=== PATIENT | male | born 1940 | race Asian ===

== ENCOUNTER 2018-07-26 05:36 | Day surgery (SDC) | payer OTHER ==
--- NOTE | 2018-07-25 13:18 | PREOPHP ---
DATE OF ADMISSION: 07/26/2018 HISTORY OF PRESENT ILLNESS: This 78-year-old patient is admitted for elective cataract surgery of th e right eye. The patient has had decreased vision for a number of years and was advised while still living in the [facility] to undergo surgery. The patient did undergo laser trabeculoplasty in both eyes in 2016. The patient's systemic history is positive for systemic hypertension, hypercholesterol emia and glaucoma. CURRENT MEDICATIONS: Includes: 1. Latanoprost sustained in both eyes. 2. Atorvastatin. 3. Lisinopril. 4. Clopidogrel. ALLERGIES: THE PATIENT IS ALLERGIC TO TIMOLOL EYEDROPS. PHYSICAL EXAMINATION: The visual acuity with best correction is 20/80 in the right eye and 20/50 in the left eye. Slit lamp examination reveals moderate lens nuclear changes. There is a central poste rior subcapsular cataract greater in the right eye than the left eye. Applanation tonometry is 16 mm Hg. Examination of the retina is within normal limits. DIAGNOSIS: Posterior subcapsular cataract, right eye. PLAN: Cataract extraction with lens implant, right eye. The risks and alternatives to the surgery h ave been discussed with the patient and patient has opted to proceed with surgery in hopes of obtaini ng improved visual acuity leading to greater ability to perform activities of daily living. The ariana ent consents to proceed with surgery. Dictated By: KYLE SINGH/URMILA Conf#: [id number] DID#: [id number]
[~2018-07-26] VITALS: Ht 161.3 cm; Wt 73.2 kg
[2018-07-26] VITALS (9 sets, daily range): BP systolic 100–129; BP diastolic 54–65; PULSE 64–67; RESP 14–25; Ht 161.3 cm; Wt 73.2 kg
[2018-07-26] MEDS ORDERED: LIDOCAINE 4% (MPF) 5 ML INJ ONE (06:52)
[2018-07-26] MEDS ORDERED: CEFAZOLIN 1 GM INJ ONE (06:52)
[2018-07-26] MEDS ORDERED: GENTAMICIN 80 MG INJ ONE (06:53)
[2018-07-26] MEDS ORDERED: DEXAMETHASONE 4 MG/ML 1 ML INJ ONE (06:53)
[2018-07-26] MEDS ORDERED: TETRACAINE 0.5% 4 ML OPH ONE (06:53)
[2018-07-26] MEDS ORDERED: EPINEPHrine 1 MG INJ ONE (06:53)
[2018-07-26] MEDS ORDERED: CARBACHOL 0.01% 1.5 ML OPH INJ ONE (06:53)
[2018-07-26] MEDS ORDERED: LISI-471 PO (06:58)
[2018-07-26] MEDS ORDERED: FAMO20TA18 PO (06:58)
[2018-07-26] MEDS ORDERED: ATOR40TA68 PO (06:58)
[2018-07-26] MEDS ORDERED: CLOP75TA27 PO (06:59)
[2018-07-26] MEDS ORDERED: ASPI81TA52 PO (06:59)
[2018-07-26] MEDS ORDERED: OMEG1CAP2 PO (06:59)
[2018-07-26] MEDS ORDERED: DICLOFENAC 0.1% 2.5 ML OPH OPER SCH (07:00)
[2018-07-26] MEDS ORDERED: TROPICAMIDE 1% 15 ML OPH OPER SCH (07:00)
[2018-07-26] MEDS ORDERED: MOXIFLOXACIN 0.5% 3 ML OPH OPER SCH (07:00)
[2018-07-26] MEDS ORDERED: SOD CHLORIDE 0.9% 1,000 ML IV SCH (07:00)
[2018-07-26] MEDS ORDERED: CYCLOPENTOLATE/PHENYLEPH 2 ML OPH OPER SCH (07:00)
--- NOTE | 2018-07-26 07:11 | PREAC ---
Date/Time of Note Date/Time of Note DATE: 07/26/18 TIME: 07:06 Anesthesia Eval and Record Evaluation Time Pre-Procedure Interview DATE: 07/26/18 TIME: 07:06 Age 78 Sex male NPO: 8 hrs Preoperative diagnosis right cataract Planned procedure Right CE with OIL implant Past Medical History Past Medical History: Includes Cardio: HTN, Dyslipidemia, Other (first degree heart blockl) Pulm: Smoking Hx (quit ) Surgery & Anesthesia Issues No known issue Meds Anticoagulation: Yes (clopidrogel last taken yesterday; ASA stopped 6 days ago) Beta Peggy within 24 hr: No Reason Beta Peggy not given: Pt. not on B-Peggy Reported Medications Aspirin (Low Dose Aspirin) 81 Mg Tablet.dr, 81 MG PO DAILY, #30 TAB 07/26/18 [place]-3 Acid Ethyl Esters (Lovaza) 1 Gm Capsule, 1 GM PO DAILY, CAP 07/26/18 Clopidogrel Bisulfate (Clopidogrel) 75 Mg Tablet, 75 MG PO DAILY, #30 TAB 07/26/18 Famotidine* (Famotidine*) 20 Mg Tablet, 20 MG PO DAILY, #30 TAB 07/26/18 Lisinopril* (Lisinopril*) 20 Mg Tablet, 20 MG PO DAILY, #30 TAB 07/26/18 Atorvastatin* (Atorvastatin*) 40 Mg Tablet, 40 MG PO QHS, #30 TAB 07/26/18 Current Medications Diclofenac Sodium (Voltaren 0.1%) 1 drop Q5 MIN X 3 OPER Last administered on 07/26/18at 06:01; Admin Dose 1 DROP; Start 07/26/18 at 07:00; Stop 07/26/18 at 19:00 Tropicamide (Mydriacyl 1%) 1 drop Q5 MIN X3 OPER Last administered on 07/26/18at 06:01; Admin Dose 1 DROP; Start 07/26/18 at 07:00; Stop 07/26/18 at 19:00 Moxifloxacin HCl (Vigamox) 1 drop Q5 MIN X 3 OPER Last administered on 07/26/18at 06:00; Admin Dose 1 DROP; Start 07/26/18 at 07:00; Stop 07/26/18 at 19:00 Cyclopentolate/ Phenylephrine (Cyclomydril Oph 2 ml) 1 drop Q5 MIN X 3 OPER Last administered on 3/26/19at 06:01; Admin Dose 1 DROP; Start 07/26/18 at 07:00; Stop 07/26/18 at 19:00 Sodium Chloride 1,000 ml @ 25 mls/hr Q24H IV ; Start 07/26/18 at 07:00; Stop 07/26/18 at 19:00 Meds reviewed: Yes Allergies Coded Allergies: No Known Allergy (Unverified , 07/26/18) Allergies Reviewed: Yes Labs/Studies Labs Reviewed: Reviewed by anesthesiologist test: N/A Studies: ECG Pre-procedure Exam Last vitals Vital Signs Date Temp Pulse Resp B/P (MAP) Pulse Ox O2 O2 Flow FiO2 Time Delivery Rate 07/26/18 97.7 67 14 107/63 99 Room Air 06:19 (78) Airway: Adequate mouth opening, Adequate thyromental dist Mallampati: Mallampati II Teeth: Abnormal (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) Lung: Normal Heart: Normal ASA Physical Status ASA physical status: 3 Emergency: None Planned Anesthetic General/MAC: MAC Planned Pain Management Parenteral pain med Pre-operative Attestations Prior to commencing anesthesia and surgery, the patient was re-evaluated, there was verification of: *The patient's identity *The results of appropriate recent lab work and preoperative vital signs *The above evaluation not changing prior to induction *Anesthetic plan, risk benefits, alternative and complications discussed with patient/family; questions answered; patient/family understands, accepts and wishes to proceed. DOTTIE FAGAN CRNA Jul 26, 2018 07:11
[2018-07-26] MEDS ORDERED: FENTAnyl 50 MCG/ML VIAL ONE (07:23)
[2018-07-26] MEDS ORDERED: PROPOFOL 100 ML ONE (07:23)
[2018-07-26] MEDS ORDERED: LIDOCAINE 2% (SDV) 5 ML INJ ONE (07:25)
[2018-07-26] MEDS ORDERED: NA HYALURONATE/CHONDROITIN 0.5 ML SYG RIGHT EYE ONE (07:54)
--- NOTE | 2018-07-26 08:27 | PAC ---
Date/Time of Note Date/Time of Note DATE: 07/26/18 TIME: 08:26 Post-Anesthesia Notes Post-Anesthesia Note Last documented vital signs Vital Signs Date Temp Pulse Resp B/P (MAP) Pulse Ox O2 O2 Flow FiO2 Time Delivery Rate 07/26/18 97.7 67 14 107/63 99 Room Air 06:19 (78) Activity: WNL Respiratory function: WNL Cardiovascular function: WNL Mental status: Baseline Pain reasonably controlled: Yes Hydration appropriate: Yes Nausea/Vomiting absent: Yes Comments BP 129/57 SP02 99% HR 65 RR 17 T 98.9F DOTTIE FAGAN CRNA Jul 26, 2018 08:27
--- NOTE | 2018-07-26 08:28 | SIPON ---
Date/Time of Note Date/Time of Note DATE: 07/26/18 TIME: 08:27 Operative Report Preoperative Diagnosis nuclear sclerotic cataract od Postoperative Diagnosis same Operation/Procedure Performed cataract extraction with lens implant od Surgeon kyle christianson respiratory therapy assistant none Anesthesia: MAC Estimated blood loss: none Transfusion Required none Specimen none Grafts/Implants posterior chamber lens implant Complications none KYLE CHRISTIANSON MD Jul 26, 2018 08:28
[2018-07-26] MEDS ORDERED: ONDANSETRON 4 MG INJ IV PRN (08:30)
[2018-07-26] MEDS ORDERED: FENTAnyl 50 MCG/ML VIAL IV PRN (08:30)
[2018-07-26] MEDS ORDERED: OXYCODONE/ACETAMINOPHEN (5/325) TAB PO PRN (08:30)
--- NOTE | 2018-07-26 09:42 | OPR ---
DATE OF OPERATION: 07/26/2018 PREOPERATIVE DIAGNOSIS: Nuclear sclerotic cataract, right eye. POSTOPERATIVE DIAGNOSIS: Nuclear sclerotic cataract, right eye. OPERATION PERFORMED: Cataract extraction with lens implant, right eye. SURGEON: Kyle Ruiz M.D. ANESTHESIA: Monica Salazar CRNA. OPERATION: Phacoemulsification with posterior chamber intraocular lens implant, right eye. PROCEDURE: The patient was brought to the operating room and placed on the table with an IV in place and the patient attached to an monitor technician. Oxygen was given via face mask. After some intravenous sedation was administered, local anesthesia was given using Xylocaine 2% with epinephrine, mixed with Marcaine 0.5%. This was given in a lid block and retrobulbar injection. The patient was then prepped and draped in the usual sterile manner. A wire lid speculum was inserted between the lids of the right eye. A Superblade was used to enter the anterior chamber at the corneoscleral limbus at the 10:30 o'clock position. A separate incision was made using a 3.0-mm keratome which entered the corneoscleral junction at the 12 o'clock position. Through this 3-mm opening, an irrigating cystotome was introduced into the anterior chamber. The chamber was filled with Viscoat and an anterior capsulotomy was performed. Balanced salt solution was then used for hydrodissection of the lens. A phacoemulsification handpiece was then brought into the field and introduced into the anterior chamber. The lens nucleus was emulsified using a deep groove and cracking the nucleus into quadrants. Following this, each quadrant was aspirated and emulsified at the pupillary margin. After this was completed, the irrigation/aspiration handpiece was brought to the field, introduced into the posterior chamber, and the lens cortical material was removed. Following removal of the lens cortical material and injection of viscoelastic portion of the report as the lens implant was being inserted, it was noted that there was a break in the posterior capsule, the lens was removed and a limited anterior vitrectomy was performed using mechanical vitrectomy instrumentation. When there was no vitreous in the anterior chamber at the lips of the wound inspection was made of the posterior capsule, and it was noted that there was sufficient peripheral capsular support to reinsert the posterior chamber intraocular lens. Additional Viscoat was injected into the anterior and posterior chambers. The 3-mm opening had its internal lips enlarged, and then the posterior chamber intraocular lens measuring 19.5 diopters ([employer] Model LI61AO) was then injected into the posterior chamber using the lens injector system. The lens was oriented in the horizontal meridian. The lens centered well and remained stable, the wound was then closed using 10-0 nylon suture. A Sinskey hook was then used to rotate the intraocular lens so that the lips were oriented in the horizontal meridian. One 10-0 nylon suture was placed across the wound. Prior to tying, the irrigation/aspiration handpiece was reintroduced into the anterior chamber to remove the Viscoat. Miochol was instilled to constrict the pupil, and then the 10-0 nylon suture was tied. The ends were cut short and then the knot was buried. Then, 0.5 mL of dexamethasone and 0.5 mL of Ancef were injected into the sub- Tenon space in the inferior fornix. Ciloxan drops were then placed on the surface of the eye. The speculum was removed and a patch was applied. The patient then left the operating room in satisfactory condition. Dictated By: KYLE SINGH/URMILA Conf#: [id number] DID#: [id number] KAYLEN
== END 2018-07-26 09:40 | disposition home or self-care (01) ==
LOC: SDS 05:36
PROVIDERS: ATTEND Ophthalmology
DX: H25.11 Age-related nuclear cataract, right eye (principal); I10 Essential (primary) hypertension; E78.5 Hyperlipidemia, unspecified; Z87.891 Personal history of nicotine dependence
CPT/HCPCS: 66984; J0171; J0690; J1100; J1580; J3010; V2632; Z7512; Z7610

== ENCOUNTER 2018-11-01 05:31 | Day surgery (SDC) | payer OTHER ==
--- NOTE | 2018-10-31 12:47 | PREOPHP ---
DATE OF ADMISSION: 11/01/2018 HISTORY OF PRESENT ILLNESS: This 78-year-old gentleman is admitted for elective cataract surgery of the left eye. The patient has had decreased vision for a number of years, as well as a history of ch ronic open angle glaucoma. He previously has had laser trabeculoplasty in both eyes in 2016 and a ca taract surgery of the right eye 3 months ago. The patient's systemic history is positive for hyperte nsion, hypercholesterolemia, and glaucoma. CURRENT MEDICATIONS: Include: 1. Atorvastatin. 2. Lisinopril. 3. Clopidogrel. 4. Latanoprost in both eyes. PHYSICAL EXAMINATION: The visual acuity with best correction is 20/40 in the right eye and 20/60 in the left eye. Slit lamp examination reveals a posterior chamber lens in proper position in the right eye and a nuclear sclerotic and posterior subcapsular cataract in the left eye. Applanation tonomet ry is 18 mmHg. Examination of the retina is within normal limits. DIAGNOSIS: Nuclear sclerotic and posterior subcapsular cataract, left eye. PLAN: Cataract extraction with lens implant, left eye. The risks and alternatives to the surgery frazier ve been discussed with the patient as well as the hope for improvement of visual acuity leading to gr eater ability to perform activities of daily living. The patient understands this and agrees to proc eed with surgery. Dictated By: KYLE SINGH/URMILA Conf#: [id number] DID#: [id number]
[~2018-11-01] VITALS: Ht 154.9 cm; Wt 70.9 kg
[2018-11-01] VITALS (9 sets, daily range): BP systolic 110–125; BP diastolic 56–65; PULSE 62–69; RESP 12–19; Ht 154.9 cm; Wt 70.9 kg
[~2018-11-01 05:31] MED LIST: ASPI81TA52 PO; ATOR40TA68 PO; CLOP75TA27 PO; FAMO20TA18 PO; LISI-471 PO; OMEG1CAP2 PO
[2018-11-01] MEDS ORDERED: TROPICAMIDE 1% 15 ML OPH OPER SCH (06:33)
[2018-11-01] MEDS ORDERED: MOXIFLOXACIN 0.5% 3 ML OPH OPER SCH (06:33)
[2018-11-01] MEDS ORDERED: SOD CHLORIDE 0.9% 1,000 ML IV SCH (06:33)
[2018-11-01] MEDS ORDERED: CYCLOPENTOLATE/PHENYLEPH 2 ML OPH OPER SCH (06:33)
[2018-11-01] MEDS ORDERED: DICLOFENAC 0.1% 2.5 ML OPH OPER SCH (06:33)
[2018-11-01] MEDS ORDERED: LIDOCAINE 4% (MPF) 5 ML INJ ONE (06:58)
[2018-11-01] MEDS ORDERED: CEFAZOLIN 1 GM INJ ONE (06:58)
[2018-11-01] MEDS ORDERED: MOXIFLOXACIN 0.5% 3 ML OPH ONE (06:58)
[2018-11-01] MEDS ORDERED: TETRACAINE 0.5% 4 ML OPH ONE (06:58)
[2018-11-01] MEDS ORDERED: NA HYALURONATE/CHONDROITIN 0.5 ML SYG ONE (06:58)
[2018-11-01] MEDS ORDERED: EPINEPHrine 1 MG INJ ONE (06:58)
[2018-11-01] MEDS ORDERED: DEXAMETHASONE 4 MG/ML 1 ML INJ ONE (06:58)
[2018-11-01] MEDS ORDERED: GENTAMICIN 80 MG INJ ONE (06:58)
[2018-11-01] MEDS ORDERED: CARBACHOL 0.01% 1.5 ML OPH INJ ONE (06:58)
--- NOTE | 2018-11-01 07:08 | PREAC ---
Date/Time of Note Date/Time of Note DATE: 11/01/18 TIME: 07:06 Anesthesia Eval and Record Evaluation Time Pre-Procedure Interview DATE: 11/01/18 TIME: 07:06 Age 78 Sex male NPO: 8 hrs Preoperative diagnosis left cataract Planned procedure left age related nuclear cataract Past Medical History Past Medical History: Includes Cardio: HTN, Dyslipidemia, CAD Surgery & Anesthesia Issues No known issue Meds Anticoagulation: No (plavix discontinued about 1 month prior) Beta Peggy within 24 hr: No Reason Beta Peggy not given: Pt. not on B-Peggy Reported Medications Aspirin (Low Dose Aspirin) 81 Mg Tablet.dr, 81 MG PO DAILY, #30 TAB 07/26/18 [place]-3 Acid Ethyl Esters (Lovaza) 1 Gm Capsule, 1 GM PO DAILY, CAP 07/26/18 Clopidogrel Bisulfate (Clopidogrel) 75 Mg Tablet, 75 MG PO DAILY, #30 TAB 07/26/18 Famotidine* (Famotidine*) 20 Mg Tablet, 20 MG PO DAILY, #30 TAB 07/26/18 Lisinopril* (Lisinopril*) 20 Mg Tablet, 20 MG PO DAILY, #30 TAB 07/26/18 Atorvastatin* (Atorvastatin*) 40 Mg Tablet, 40 MG PO QHS, #30 TAB 07/26/18 Current Medications Diclofenac Sodium (Voltaren 0.1%) 1 drop Q5 MIN X 3 OPER Last administered on 11/01/18at 06:40; Admin Dose 1 DROP; Start 11/01/18 at 06:33 Tropicamide (Mydriacyl 1%) 1 drop Q5 MIN X3 OPER Last administered on 11/01/18at 06:39; Admin Dose 1 DROP; Start 11/01/18 at 06:33 Moxifloxacin HCl (Vigamox) 1 drop Q5 MIN X 3 OPER Last administered on 11/01/18at 06:40; Admin Dose 1 DROP; Start 11/01/18 at 06:33 Cyclopentolate/ Phenylephrine (Cyclomydril Oph 2 ml) 1 drop Q5 MIN X 3 OPER Last administered on 11/01/18at 06:39; Admin Dose 1 DROP; Start 11/01/18 at 06:33 Sodium Chloride 1,000 ml @ 25 mls/hr Q24H IV Last administered on 11/01/18at 06:40; Admin Dose 25 MLS/HR; Start 11/01/18 at 06:33 Meds reviewed: Yes Allergies Coded Allergies: chicken derived (Verified Allergy, Unknown, 07/26/18) shrimp (Verified Allergy, Unknown, 07/26/18) Allergies Reviewed: Yes Labs/Studies Labs Reviewed: Reviewed by anesthesiologist test: N/A Studies: ECG, CXR Pre-procedure Exam Last vitals Vital Signs Date Temp Pulse Resp B/P (MAP) Pulse Ox O2 O2 Flow FiO2 Time Delivery Rate 11/01/18 98.0 69 18 125/65 96 Room Air 06:17 (85) Airway: Adequate mouth opening, Adequate thyromental dist Mallampati: Mallampati II Teeth: Normal Lung: Normal Heart: Normal ASA Physical Status ASA physical status: 3 Emergency: None Planned Anesthetic General/MAC: Mask Planned Pain Management Parenteral pain med Pre-operative Attestations Prior to commencing anesthesia and surgery, the patient was re-evaluated, there was verification of: *The patient's identity *The results of appropriate recent lab work and preoperative vital signs *The above evaluation not changing prior to induction *Anesthetic plan, risk benefits, alternative and complications discussed with patient/family; questions answered; patient/family understands, accepts and wishes to proceed. EDDY THAO MD Nov 01, 2018 07:08
[2018-11-01] MEDS ORDERED: MIDAZOLAM 1 MG/ML 2 ML INJ ONE (07:21)
[2018-11-01] MEDS ORDERED: LIDOCAINE 2% (SDV) 5 ML INJ ONE (07:43)
[2018-11-01] MEDS ORDERED: PROPOFOL 20 ML ONE (07:43)
[2018-11-01] MEDS ORDERED: FENTAnyl 50 MCG/ML VIAL ONE (07:46)
[2018-11-01] MEDS ORDERED: hydrALAzine 20 MG INJ IV PRN (08:00)
[2018-11-01] MEDS ORDERED: MEPERIDINE 25 MG INJ IV PRN (08:00)
[2018-11-01] MEDS ORDERED: HYDROmorphONE 1 MG/5 ML IV SYRINGE IV PRN ×2 (08:00)
[2018-11-01] MEDS ORDERED: PROCHLORPERAZINE 10 MG INJ IV PRN (08:00)
[2018-11-01] MEDS ORDERED: OXYCODONE/ACETAMINOPHEN (5/325) TAB PO PRN (08:00)
[2018-11-01] MEDS ORDERED: ONDANSETRON 4 MG INJ IV PRN (08:00)
[2018-11-01] MEDS ORDERED: FENTAnyl 50 MCG/ML VIAL IV PRN (08:00)
[2018-11-01] MEDS ORDERED: DIPHENHYDRAMINE 50 MG INJ IV PRN (08:00)
--- NOTE | 2018-11-01 08:12 | SIPON ---
Date/Time of Note Date/Time of Note DATE: 11/01/18 TIME: 08:10 Operative Report Preoperative Diagnosis nuc lear sclerotic & posterior subcapsular cataract os Postoperative Diagnosis same Operation/Procedure Performed cataract extraction with lens implant os Surgeon kyle christianson social worker assistant none Anesthesia: MAC Estimated blood loss: none Transfusion Required none Specimen none Grafts/Implants posterrior chamber lens implant Complications none KYLE CHRISTIANSON MD Nov 01, 2018 08:12
--- NOTE | 2018-11-01 08:16 | PAC ---
Date/Time of Note Date/Time of Note DATE: 11/01/18 TIME: 08:16 Post-Anesthesia Notes Post-Anesthesia Note Last documented vital signs Vital Signs Date Temp Pulse Resp B/P (MAP) Pulse Ox O2 O2 Flow FiO2 Time Delivery Rate 11/01/18 98.0 69 18 125/65 96 Room Air 06:17 (85) Activity: WNL Respiratory function: WNL Cardiovascular function: WNL Mental status: Baseline Pain reasonably controlled: Yes Hydration appropriate: Yes Nausea/Vomiting absent: Yes Comments BP: 113/62 HR: 68 RR: 14 T: 98 SaO2: 99% EDDY THAO MD Nov 01, 2018 08:16
--- NOTE | 2018-11-01 09:04 | OPR ---
DATE OF OPERATION: 11/01/2018 PREOPERATIVE DIAGNOSIS: Nuclear sclerotic and posterior subcapsular cataract, left eye. POSTOPERATIVE DIAGNOSIS: Nuclear sclerotic and posterior subcapsular cataract, left eye. OPERATION PERFORMED: Cataract extraction with lens implant, left eye. SURGEON: Kyle Ruiz MD ANESTHESIA: Local standby. ANESTHESIOLOGIST: Dr. Evans. PROCEDURE: The patient was brought to the operating room and placed on the table with an IV in place and the patient attached to an court recording monitor. Oxygen was given via face mask. After some intravenous sedation was administered, local anesthesia was given using Xylocaine 2% with epinephrine, mixed with Marcaine 0.5%. This was given in a lid block and retrobulbar injection. The patient was then prepped and draped in the usual sterile manner. A wire lid speculum was inserted between the lids of the left eye. A Superblade was used to enter th e anterior chamber at the corneoscleral limbus at the 10:30 o'clock position. A separate incision wa s made using a 3.0-mm keratome which entered the corneoscleral junction at the 12 o'clock position. Through this 3-mm opening, an irrigating cystotome was introduced into the anterior chamber. The alisha mber was filled with Viscoat and an anterior capsulotomy was performed. Balanced salt solution was t hen used for hydrodissection of the lens. A phacoemulsification handpiece was then brought into the field and introduced into the anterior chamber. The lens nucleus was emulsified using a deep groove and cracking the nucleus into quadrants. Following this, each quadrant was aspirated and emulsified at the pupillary margin. After this was completed, the irrigation/aspiration handpiece was brought to the field, introduced in to the posterior chamber, and the lens cortical material was removed. When this was completed, addit ional Viscoat was injected into the anterior and posterior chambers. The 3-mm opening had its internal lips enlarged, and then the posterior chamber intraocular lens marlene uring 19.5 diopter posterior chamber intraocular lens ([employer] Model LI61AO) was then injected into the posterior chamber using the lens injector system. After the leading haptic wa s introduced into the capsular bag and the lens optic was present in the center of the eye, the injec tor was removed and the trailing haptic was grasped with non-toothed forceps and introduced into the capsular fold superiorly. A Sinskey hook was then used to rotate the intraocular lens so that the li ps were oriented in the horizontal meridian. One 10-0 nylon suture was placed across the wound. Prior to tying, the irrigation/aspiration handpiece was reintroduced into the anterior chamber to rem ove the Viscoat. Miochol was instilled to constrict the pupil, and then the 10-0 nylon suture was ti ed. The ends were cut short and then the knot was buried. Then, 0.5 mL of dexamethasone and 0.5 mL of Ancef were injected into the sub-Tenon space in the infer ior fornix. Ciloxan drops were then placed on the surface of the eye. The speculum was removed and a patch was applied. The patient then left the operating room in satisfactory condition. Dictated By: KYLE SINGH/URMILA Conf#: [id number] DID#: [id number]
== END 2018-11-01 09:07 | disposition home or self-care (01) ==
LOC: SDS 05:31
PROVIDERS: ATTEND Ophthalmology
DX: H25.032 Anterior subcapsular polar age-related cataract, left eye (principal); I10 Essential (primary) hypertension; E78.00 Pure hypercholesterolemia, unspecified; I25.10 Atherosclerotic heart disease of native coronary artery without angina pectoris; Z79.82 Long term (current) use of aspirin
CPT/HCPCS: 66984; J0171; J0690; J1100; J1580; J2250; J3010; V2632; Z7512; Z7610